=== PATIENT | male | born 1975 | race Caucasian/White ===

== ENCOUNTER 2018-05-05 16:12 | Emergency (ER) | payer MEDICAID ==
[~2018-05-05] VITALS: Ht 188 cm; Wt 117.9 kg
[2018-05-05 16:45] VITALS: BP 134/81
--- NOTE | 2018-05-05 16:45 | NUR ---
ED Nurse Note: PT. AAOX 4. AMBULATORY CAME IN TO ER DUE TO TOOTHACHE X 2 DAYS AGO. HASN'T SEEN A DENTIST YET
[2018-05-05] MEDS ORDERED: LISINOPRIL20 MG ORAL (16:48)
[2018-05-05] MEDS ORDERED: Norco 5mg/325mg tab ORAL ONE (18:00)
[2018-05-05] MEDS ORDERED: Lidocaine 2% Visc 15ml soln ORAL ONE (18:00)
[2018-05-05] MEDS ORDERED: Augmentin 875mg Tab ORAL ONE (18:00)
--- NOTE | 2018-05-05 18:26 | Emergency Room Report ---
History of Present Illness General Chief Complaint: Toothache Source: Patient Present Illness HPI 42-year-old male presents to the emergency department complaining of 8/10 in severity pain, swelling, erythema and tenderness to the right lower gumline/jaw 2 days. Patient reports he has poor dentition and is in need of dental visit however he states that he is unable to afford one at this time. Patient states that he was told several teeth need to be pulled. He denies fevers, chills, swollen tender lymph nodes. She states he has been icing with no relief he has been taking Motrin and Tylenol which also do not provide relief. Denies trauma or fall. Denies rashes, blisters or oral lesions. Allergies: Coded Allergies: No Known Allergies (Unverified , 05/05/18) Patient History Past Medical History: see triage record Past Surgical History: none Pertinent Family History: none Immunizations: UTD Reviewed Nursing Documentation: PMH: Agreed; PSxH: Agreed Nursing Documentation-PMH Past Medical History: No Stated History Hx Hypertension: Yes Review of Systems All Other Systems: negative except mentioned in HPI Physical Exam Vital Signs Date Time Temp Pulse Resp B/P (MAP) Pulse Ox O2 Delivery O2 Flow Rate FiO2 05/05/18 16:45 98.4 110 19 134/81 98 Room Air Sp02 EP Interpretation: reviewed, normal General Appearance: no apparent distress, alert, GCS 15, non-toxic Head: normocephalic, atraumatic Eyes: bilateral eye normal inspection, bilateral eye PERRL ENT: hearing grossly normal, normal voice, other - swelling of the right lower gum line and buccal area. there is palpable fluctuance, poor dentition noted, receeding gum lines and erythema about all the teeth. Neck: full range of motion Respiratory: chest non-tender, lungs clear, normal breath sounds, speaking full sentences Cardiovascular #1: regular rate, rhythm, no edema Gastrointestinal: normal bowel sounds, non tender, soft Rectal: deferred Genitourinary: normal inspection Musculoskeletal: back normal, gait/station normal, normal range of motion, non- tender Neurologic: alert, oriented x3, responsive, motor strength/tone normal, sensory intact, speech normal, grossly normal Psychiatric: judgement/insight normal Skin: normal color, no rash, warm/dry, well hydrated Lymphatic: no adenopathy Procedures Incision and Drainage Incision and Drainage : Consent: Verbal Site: right lower buccal surface/ gum line Blade Size: 11 Wound Location: other - mouth: rigth lower buccal surgace/gum line Wound Explored: contaminated - purulent d/c and blood expressed Irrigated w/ Saline (ccs): 200 Anesthesia: other - viscous lidocaine 2% Volume Anesthetic (ccs): 10 Patient Tolerated: Well Complications: None Medical Decision Making PA Attestation Dr. Romano is my supervising Physician whom patient management has been discussed with. Diagnostic Impression: Primary Impression: Abscess of buccal space of mouth ER Course 42-year-old male presents to the emergency department complaining of 8/10 in severity pain, swelling, erythema and tenderness to the right lower gumline/jaw 2 days. Patient reports he has poor dentition and is in need of dental visit however he states that he is unable to afford one at this time. Patient states that he was told several teeth need to be pulled. He denies fevers, chills, swollen tender lymph nodes. She states he has been icing with no relief he has been taking Motrin and Tylenol which also do not provide relief. Denies trauma or fall. Denies rashes, blisters or oral lesions. . Ddx considered but are not limited to cellulitis, dental abscess, orbital cellulitis, d/l tooth, dental pain. trigeminal neuralgia Vital signs: are WNL, pt. is afebrile H&PE are most consistent with buccal mucosal/gum abscess- palpable fluctuance. . ORDERS: none required at this time, the diagnosis is clinical ED INTERVENTIONS: -[place] PO -Augmentin PO -I & D DISCHARGE: At this time pt. is stable for d/c to home. Will provide printed patient care instructions, and any necessary prescriptions. Care plan and follow up instructions have been discussed with the patient prior to discharge. Last Vital Signs Date Time Temp Pulse Resp B/P (MAP) Pulse Ox O2 Delivery O2 Flow Rate FiO2 05/05/18 16:45 98.4 110 19 134/81 98 Room Air Disposition: HOME, SELF-CARE Condition: Stable Scripts Amoxicillin/Potassium Clav 875-125* (AUGMENTIN 875-125 TABLET*) 1 Each Tablet 1 TAB ORAL TWICE A DAY for 7 Days, #14 TAB Prov: Ayse Leroy 05/05/18 Acetaminophen With Codeine (T#3) (TYLENOL #3 TAB*) Y Tab 1 TAB ORAL Q6H PRN for For Pain, #5 TAB Prov: Ayse Leroy 05/05/18 Chlorhexidine Gluconate (CHLORHEXIDINE GLUCONATE) 473 Ml Mouthwash 15 ML MM TID, #473 ML Prov: Ayse Leroy 05/05/18 Referrals: Prashant Coy MD (PCP) Patient Instructions: Dental Abscess, [id number], Dental Pain Additional Instructions: Take medications as directed. Follow up with a Dentist in 3-5 days, even if your symptoms have resolved. * * --Please review list of Dental clinics, if you do not already have a Dentist Return sooner to ED if new symptoms occur, or current symptoms become worse. Do not drink alcohol, drive, or operate heavy machinery while taking Tylenol # 3 as this may cause drowsiness. - Please note that this Emergency Department Report was dictated using [employer] locomotive firer/fireman technology software, occasionally this can lead to erroneous entry secondary to interpretation by the dictation equipment. Ayse Leroy May 05, 2018 18:26
[2018-05-05] MEDS ORDERED: ACETAMINOPHEN-1 EAC1 ORAL (19:07)
[2018-05-05] MEDS ORDERED: AUGMENTIN 875-1 EAC1 ORAL (19:07)
[2018-05-05] MEDS ORDERED: CHLORHEXIDINE473 ML MM (19:07)
[2018-05-05 19:18] VITALS: BP 134/81
--- NOTE | 2018-05-05 19:18 | NUR ---
ED Nurse Note: PT IS D/C PER ERMD ORDER. PT IS AOX4. PT WAS GIVEN DC AND PRECRIPTION INSCTRUCTIONS. PT VERABILZED UNDERSTANDING, PT IS ABLE TO AMBULATE WITH STEADY GAIT. ID BAND REMOVED. PT TOOK ALL BELONGINGS
== END 2018-05-05 19:18 | disposition home or self-care (01) ==
LOC: EMR 17:41
DX: K12.2 Cellulitis and abscess of mouth (principal); I10 Essential (primary) hypertension
CPT/HCPCS: 41800; 99283; Z7502